=== PATIENT | male | born 1955 | race Caucasian/White ===

== ENCOUNTER 2020-07-08 02:53 | Emergency (ER) | payer BC, SELFPAY ==
[~2020-07-08] VITALS: Ht 180.3 cm; Wt 91.6 kg
[2020-07-08 03:00] VITALS: BP_SYST 144
[2020-07-08 03:48] LABS: C-REACTIVE PROTEIN QUANT 11.6 mg/dL (0-0.5); CALCIUM 7.6 mg/dL (8.4-11.0); CREATININE 1.09 mg/dL (0.55-1.30)
[2020-07-08 04:03] LABS: ALBUMIN 3.2 g/dL (3.4-4.8); TOTAL BILIRUBIN 0.4 mg/dL (0.0-1.0)
[2020-07-08 04:18] LABS: FIBRINOGEN 527 mg/dL (200-400)
[2020-07-08 04:25] LABS: HEMATOCRIT 40.3 % (36-54); HEMOGLOBIN 13.6 g/dL (14.0-18.0); RED BLOOD CELL COUNT(AUTO) 4.59 MIL/uL (4.2-6.2); WHITE BLOOD COUNT (AUTO) 5.1 K/uL (4.8-10.8)
[2020-07-08 04:26] LABS: BASOPHILS % (AUTO) 0.5 % (0.0-2.0); EOSINOPHILS % (AUTO) 0.3 % (0.0-4.0); LYMPHOCYTES # (AUTO) 0.5 K/uL (1.0-5.5); LYMPHOCYTES % (AUTO) 10.6 % (20.5-51.5); MEAN CORPUSCULAR HEMOGLOBIN 30 pg (27-31); MEAN CORPUSCULAR HGB CONC 34 % (32-36); MEAN CORPUSCULAR VOLUME 88 fL (79.0-98.0); MONOCYTES # (AUTO) 0.4 K/uL (0.0-1.0); NEUTROPHILS # (AUTO) 4.1 K/uL (1.8-7.7); NEUTROPHILS % (AUTO) 81.6 % (40.0-70.0); PLATELET COUNT (AUTO) 162 K/uL (130-430); RED CELL DISTRIBUTION WIDTH 13.5 % (9.0-15.0)
[2020-07-08] MEDS ORDERED: IPRATROPIUM/ALBUTEROL SULFATE 3 ML AMPUL.NEB (DUONEB) INH ONE (04:30)
[2020-07-08] MEDS ORDERED: IPRATROPIUM/ALBUTEROL SULFATE 3 ML AMPUL.NEB (DUONEB) ONE (04:34)
[2020-07-08] MEDS ORDERED: ALBMDI INH (05:04)
[2020-07-08] MEDS ORDERED: ZIT250 PO (05:05)
[2020-07-08 05:16] VITALS: BP_SYST 128
== END 2020-07-08 05:16 | disposition home or self-care (01) ==
LOC: SED 02:53
DX: U07.1 COVID-19 (principal); J18.9 Pneumonia, unspecified organism; J40 Bronchitis, not specified as acute or chronic
CPT/HCPCS: 36415; 71045; 80053; 85025; 85379; 85384-TC; 86140; 94640; 99284

== ENCOUNTER 2020-07-08 19:56 | Inpatient (IN) | payer BC, SELFPAY ==
[~2020-07-08] VITALS: Ht 180.3 cm; Wt 95.3 kg
[~2020-07-08 19:56] MED LIST: ALBMDI INH; ZIT250 PO
[2020-07-08 20:55] LABS: BASOPHILS % (AUTO) 0.6 % (0.0-2.0); HEMATOCRIT 38.9 % (36-54); HEMOGLOBIN 13.5 g/dL (14.0-18.0); LYMPHOCYTES # (AUTO) 0.5 K/uL (1.0-5.5); LYMPHOCYTES % (AUTO) 10.9 % (20.5-51.5); MEAN CORPUSCULAR HEMOGLOBIN 30 pg (27-31); MEAN CORPUSCULAR HGB CONC 35 % (32-36); MEAN CORPUSCULAR VOLUME 87 fL (79.0-98.0); MONOCYTES # (AUTO) 0.3 K/uL (0.0-1.0); MONOCYTES % (AUTO) 5.4 % (1.7-9.3); NEUTROPHILS # (AUTO) 4.1 K/uL (1.8-7.7); NEUTROPHILS % (AUTO) 83.1 % (40.0-70.0); PLATELET COUNT (AUTO) 176 K/uL (130-430); RED CELL DISTRIBUTION WIDTH 13.6 % (9.0-15.0); WHITE BLOOD COUNT (AUTO) 4.9 K/uL (4.8-10.8)
[2020-07-08] MEDS ORDERED: IBUPROFEN 800 MG TABLET PO ONE (21:00)
[2020-07-08 21:14] LABS: CALCIUM 7.4 mg/dL (8.4-11.0); CREATININE 1.18 mg/dL (0.55-1.30); POTASSIUM 4.3 mmol/L (3.5-5.1)
[2020-07-08 21:18] LABS: ALBUMIN 3.2 g/dL (3.4-4.8); TOTAL BILIRUBIN 0.4 mg/dL (0.0-1.0)
[2020-07-08 21:24] LABS: C-REACTIVE PROTEIN QUANT 12.9 mg/dL (0-0.5)
[2020-07-08] MEDS ORDERED: DEXAMETHASONE SOD PHOSPHATE 4 MG/ML VIAL IVP ONE (21:45)
[2020-07-08] MEDS ORDERED: KCL 20 mEq in D5/0.45NS 1000mL 1,000 ML IV ONE ×2 (22:01→23:00)
[2020-07-08] MEDS ORDERED: ACETAMINOPHEN 325 MG TABLET PO PRN (23:45)
[2020-07-08] MEDS ORDERED: LEVALBUTEROL Tartrate 15 GM HFA. 45 mCg/Actuation INH SCH (23:45)
[2020-07-08 23:55] VITALS: BP_SYST 122
[2020-07-09] VITALS (10 sets, daily range): BP systolic 112–138
[2020-07-09] MEDS ORDERED: AZITHROMYCIN 500 MG/VIAL (ZITHROMAX) IV ONE (00:56)
[2020-07-09] MEDS ORDERED: cefTRIAXone 1 GM IVPB PREMIX 50 ML IV ONE (00:56)
[2020-07-09] MEDS: cefTRIAXone 1 GM in D5W 50 ML IV SCH ×2 (01:04→23:08)
[2020-07-09] MEDS: ENOXAPARIN SODIUM 40 MG/0.4 ML SYRINGE SUBCUT SCH ×3 (01:05→23:06)
[2020-07-09] MEDS: AZITHROMYCIN 500 MG in NS 250 ML IV SCH ×2 (01:53→23:46)
[2020-07-09 07:17] LABS: BASOPHILS % (AUTO) 0.3 % (0.0-2.0); HEMATOCRIT 40.3 % (36-54); HEMOGLOBIN 13.6 g/dL (14.0-18.0); LYMPHOCYTES # (AUTO) 0.5 K/uL (1.0-5.5); LYMPHOCYTES % (AUTO) 13.6 % (20.5-51.5); MEAN CORPUSCULAR HEMOGLOBIN 29 pg (27-31); MEAN CORPUSCULAR HGB CONC 34 % (32-36); MEAN CORPUSCULAR VOLUME 86 fL (79.0-98.0); MONOCYTES # (AUTO) 0.3 K/uL (0.0-1.0); MONOCYTES % (AUTO) 7.1 % (1.7-9.3); NEUTROPHILS # (AUTO) 2.9 K/uL (1.8-7.7); PLATELET COUNT (AUTO) 184 K/uL (130-430); RED BLOOD CELL COUNT(AUTO) 4.68 MIL/uL (4.2-6.2); RED CELL DISTRIBUTION WIDTH 13.6 % (9.0-15.0); WHITE BLOOD COUNT (AUTO) 3.6 K/uL (4.8-10.8)
[2020-07-09 07:42] LABS: CALCIUM 7.7 mg/dL (8.4-11.0); CREATININE 1.15 mg/dL (0.55-1.30); POTASSIUM 4.8 mmol/L (3.5-5.1)
[2020-07-09] MEDS: CHOLECALCIFEROL (VITAMIN D3) 5,000 UNIT TABLET PO SCH (08:32)
[2020-07-09] MEDS ORDERED: KCL 20 mEq in D5/0.45NS 1000mL 1,000 ML IV SCH (16:15)
[2020-07-09] MEDS ORDERED: FUROSEMIDE 40 MG/4 ML VIAL IVP ONE (21:15)
[2020-07-09] MEDS ORDERED: methylPREDNISolone SOD SUCC/PF 62.5 MG/ML VIAL IVP ONE (21:15)
[2020-07-09] MEDS: ACETAMINOPHEN 325 MG TABLET PO PRN (21:26)
[2020-07-09] MEDS: DEXAMETHASONE SOD PHOSPHATE 10 MG/ML VIAL IVP SCH (21:30)
[2020-07-09] MEDS: ALBUTEROL MDI INHALATION 8 GM INH INH PRN (21:30)
[2020-07-09] MEDS: ASCORBIC ACID 500 MG TABLET PO SCH (23:05)
[2020-07-09 23:21] LABS: BILIRUBIN,URINE NEGATIVE (NEGATIVE); CLARITY/URINE CLEAR (CLEAR); COLOR,URINE YELLOW (YELLOW); GLUCOSE,URINE NEGATIVE (NEGATIVE); KETONES,URINE NEGATIVE (NEGATIVE); LEUKOCYTE ESTERASE ,URINE NEGATIVE (NEGATIVE); NITRITE, URINE NEGATIVE (NEGATIVE); PROTEIN URINE NEGATIVE (NEGATIVE); UROBILINOGEN,URINE 0.2 (0.2-1.0)
[2020-07-09 23:48] LABS: BLOOD, URINE TRACE (NEGATIVE)
[2020-07-09 23:49] LABS: RBC,URINE 0-3 /HPF (0-3); WBC,URINE 0-3 /HPF (0-3)
[2020-07-09 23:50] LABS: BACTERIA,URINE RARE /HPF (None Seen); MUCUS,URINE None Seen /LPF (None Seen)
[2020-07-10] VITALS: BP_SYST 115
[2020-07-10 05:25] VITALS: BP_SYST 110
[2020-07-10 06:24] LABS: BILIRUBIN,DIRECT 0.1 mg/dL (0.0-0.3); CALCIUM 8.1 mg/dL (8.4-11.0); CREATININE 1.28 mg/dL (0.55-1.30); POTASSIUM 4.5 mmol/L (3.5-5.1); TOTAL BILIRUBIN 0.4 mg/dL (0.0-1.0)
[2020-07-10 08:00] VITALS: BP_SYST 119
[2020-07-10] MEDS: CHOLECALCIFEROL (VITAMIN D3) 5,000 UNIT TABLET PO SCH (08:01)
[2020-07-10] MEDS: ASCORBIC ACID 500 MG TABLET PO SCH ×2 (08:01→20:05)
[2020-07-10] MEDS: ENOXAPARIN SODIUM 40 MG/0.4 ML SYRINGE SUBCUT SCH ×2 (08:02→20:05)
[2020-07-10 08:32] LABS: C-REACTIVE PROTEIN QUANT 8.9 mg/dL (0-0.5)
[2020-07-10 12:00] VITALS: BP_SYST 122
[2020-07-10 16:00] VITALS: BP_SYST 100
[2020-07-10 20:03] VITALS: BP_SYST 130
[2020-07-10] MEDS: DEXAMETHASONE SOD PHOSPHATE 10 MG/ML VIAL IVP SCH (20:05)
[2020-07-10] MEDS: cefTRIAXone 1 GM in D5W 50 ML IV SCH (23:02)
[2020-07-10] MEDS: AZITHROMYCIN 500 MG in NS 250 ML IV SCH (23:46)
[2020-07-11] VITALS: BP_SYST 112
[2020-07-11] MEDS: ALBUTEROL MDI INHALATION 8 GM INH INH PRN ×3 (02:14→23:26)
[2020-07-11 04:15] VITALS: BP_SYST 121
[2020-07-11 07:31] LABS: ALBUMIN 2.7 g/dL (3.4-4.8); CALCIUM 8.1 mg/dL (8.4-11.0); CREATININE 0.96 mg/dL (0.55-1.30); POTASSIUM 4.4 mmol/L (3.5-5.1); TOTAL BILIRUBIN 0.4 mg/dL (0.0-1.0)
[2020-07-11 07:56] LABS: HEMATOCRIT 41.4 % (36-54); HEMOGLOBIN 13.8 g/dL (14.0-18.0); LYMPHOCYTES # (AUTO) 0.4 K/uL (1.0-5.5); LYMPHOCYTES % (AUTO) 5.2 % (20.5-51.5); MEAN CORPUSCULAR HEMOGLOBIN 29 pg (27-31); MEAN CORPUSCULAR HGB CONC 33 % (32-36); MEAN CORPUSCULAR VOLUME 87 fL (79.0-98.0); MONOCYTES # (AUTO) 0.7 K/uL (0.0-1.0); MONOCYTES % (AUTO) 8.4 % (1.7-9.3); NEUTROPHILS # (AUTO) 7.2 K/uL (1.8-7.7); NEUTROPHILS % (AUTO) 86.4 % (40.0-70.0); PLATELET COUNT (AUTO) 264 K/uL (130-430); RED BLOOD CELL COUNT(AUTO) 4.76 MIL/uL (4.2-6.2); RED CELL DISTRIBUTION WIDTH 13.6 % (9.0-15.0); WHITE BLOOD COUNT (AUTO) 8.4 K/uL (4.8-10.8)
[2020-07-11 08:13] VITALS: BP_SYST 108
[2020-07-11] MEDS: DOCUSATE SODIUM 100 MG CAPSULE PO SCH ×2 (09:00→21:00)
[2020-07-11] MEDS: CHOLECALCIFEROL (VITAMIN D3) 5,000 UNIT TABLET PO SCH (09:18)
[2020-07-11] MEDS: ASCORBIC ACID 500 MG TABLET PO SCH ×2 (09:18→21:05)
[2020-07-11] MEDS: ENOXAPARIN SODIUM 40 MG/0.4 ML SYRINGE SUBCUT SCH ×2 (09:19→21:06)
[2020-07-11] MEDS ORDERED: IOHEXOL 350 mgI/mL, 150 ML INFUS..BTL IV ONE (09:36)
[2020-07-11 12:00] VITALS: BP_SYST 132
[2020-07-11 16:00] VITALS: BP_SYST 139
[2020-07-11] MEDS: OLUMIANT PO SCH (16:52)
[2020-07-11 19:47] VITALS: BP_SYST 137
[2020-07-11] MEDS: cefTRIAXone 1 GM in D5W 50 ML IV SCH (21:04)
[2020-07-11] MEDS: AZITHROMYCIN 500 MG in NS 250 ML IV SCH (21:04)
[2020-07-11] MEDS: DEXAMETHASONE SOD PHOSPHATE 10 MG/ML VIAL IVP SCH (21:05)
[2020-07-12] VITALS: BP_SYST 129
[2020-07-12 07:04] LABS: BASOPHILS % (AUTO) 0.1 % (0.0-2.0); HEMATOCRIT 41.1 % (36-54); HEMOGLOBIN 13.9 g/dL (14.0-18.0); LYMPHOCYTES # (AUTO) 0.4 K/uL (1.0-5.5); LYMPHOCYTES % (AUTO) 7.4 % (20.5-51.5); MEAN CORPUSCULAR HEMOGLOBIN 29 pg (27-31); MEAN CORPUSCULAR HGB CONC 34 % (32-36); MEAN CORPUSCULAR VOLUME 87 fL (79.0-98.0); MONOCYTES # (AUTO) 0.6 K/uL (0.0-1.0); MONOCYTES % (AUTO) 9.4 % (1.7-9.3); NEUTROPHILS % (AUTO) 83.1 % (40.0-70.0); PLATELET COUNT (AUTO) 300 K/uL (130-430); RED BLOOD CELL COUNT(AUTO) 4.75 MIL/uL (4.2-6.2); RED CELL DISTRIBUTION WIDTH 13.6 % (9.0-15.0)
[2020-07-12 07:33] LABS: ALBUMIN 2.7 g/dL (3.4-4.8); CALCIUM 8.2 mg/dL (8.4-11.0); POTASSIUM 5.3 mmol/L (3.5-5.1); TOTAL BILIRUBIN 0.5 mg/dL (0.0-1.0)
[2020-07-12 07:54] LABS: BILIRUBIN,DIRECT 0.1 mg/dL (0.0-0.3)
[2020-07-12] MEDS: CHOLECALCIFEROL (VITAMIN D3) 5,000 UNIT TABLET PO SCH (08:11)
[2020-07-12] MEDS: ASCORBIC ACID 500 MG TABLET PO SCH ×2 (08:11→20:34)
[2020-07-12 08:12] VITALS: BP_SYST 118
[2020-07-12] MEDS: OLUMIANT PO SCH (08:12)
[2020-07-12] MEDS: DOCUSATE SODIUM 100 MG CAPSULE PO SCH ×3 (08:12→20:35)
[2020-07-12 08:46] LABS: C-REACTIVE PROTEIN QUANT 4.2 mg/dL (0-0.5)
[2020-07-12] MEDS ORDERED: guaiFENesin 200 MG/CODEINE 20 MG/ 10 ML UDC PO PRN (09:15)
[2020-07-12] MEDS ORDERED: ENOXAPARIN SODIUM 40 MG/0.4 ML SYRINGE SUBCUT ONE (09:15)
[2020-07-12 09:42] VITALS: BP_SYST 118
[2020-07-12 12:17] VITALS: BP_SYST 120
[2020-07-12 16:46] VITALS: BP_SYST 126
[2020-07-12] MEDS: FLUTICASONE PROPIONATE 50 mCg/SPRAY 16 GM NS SCH (17:45)
[2020-07-12 19:30] VITALS: BP_SYST 131
[2020-07-12] MEDS: cefTRIAXone 1 GM in D5W 50 ML IV SCH (20:34)
[2020-07-12] MEDS: AZITHROMYCIN 500 MG in NS 250 ML IV SCH (20:34)
[2020-07-12] MEDS: DEXAMETHASONE SOD PHOSPHATE 10 MG/ML VIAL IVP SCH (20:35)
[2020-07-13] VITALS: BP_SYST 106
[2020-07-13 07:44] LABS: BASOPHILS % (AUTO) 0.1 % (0.0-2.0); HEMATOCRIT 40.5 % (36-54); HEMOGLOBIN 13.6 g/dL (14.0-18.0); LYMPHOCYTES # (AUTO) 0.4 K/uL (1.0-5.5); LYMPHOCYTES % (AUTO) 5.1 % (20.5-51.5); MEAN CORPUSCULAR HEMOGLOBIN 29 pg (27-31); MEAN CORPUSCULAR HGB CONC 34 % (32-36); MEAN CORPUSCULAR VOLUME 87 fL (79.0-98.0); MONOCYTES # (AUTO) 0.6 K/uL (0.0-1.0); MONOCYTES % (AUTO) 7.4 % (1.7-9.3); NEUTROPHILS % (AUTO) 87.4 % (40.0-70.0); PLATELET COUNT (AUTO) 364 K/uL (130-430); RED BLOOD CELL COUNT(AUTO) 4.64 MIL/uL (4.2-6.2); RED CELL DISTRIBUTION WIDTH 13.2 % (9.0-15.0)
[2020-07-13 07:47] VITALS: BP_SYST 116
[2020-07-13] MEDS: BARICITINIB -Non-Formulary 2 MG TABLET PO SCH (08:07)
[2020-07-13] MEDS: ENOXAPARIN SODIUM 40 MG/0.4 ML SYRINGE SUBCUT SCH (08:08)
[2020-07-13] MEDS: CHOLECALCIFEROL (VITAMIN D3) 5,000 UNIT TABLET PO SCH (08:08)
[2020-07-13] MEDS: ASCORBIC ACID 500 MG TABLET PO SCH ×2 (08:08→20:50)
[2020-07-13] MEDS: FLUTICASONE PROPIONATE 50 mCg/SPRAY 16 GM NS SCH (08:09)
[2020-07-13] MEDS: DOCUSATE SODIUM 100 MG CAPSULE PO SCH ×2 (08:23→20:44)
[2020-07-13 08:55] LABS: ALBUMIN 2.8 g/dL (3.4-4.8); BILIRUBIN,DIRECT 0.1 mg/dL (0.0-0.3); CALCIUM 8.5 mg/dL (8.4-11.0); CREATININE 0.86 mg/dL (0.55-1.30); TOTAL BILIRUBIN 0.6 mg/dL (0.0-1.0)
[2020-07-13 09:11] VITALS: BP_SYST 123
[2020-07-13 09:33] LABS: C-REACTIVE PROTEIN QUANT 2.7 mg/dL (0-0.5)
[2020-07-13] MEDS: ALBUTEROL MDI INHALATION 8 GM INH INH PRN (11:25)
[2020-07-13 12:13] VITALS: BP_SYST 124
[2020-07-13] MEDS: ACETAMINOPHEN 325 MG TABLET PO PRN (12:13)
[2020-07-13 16:33] VITALS: BP_SYST 131
[2020-07-13 20:04] VITALS: BP_SYST 134
[2020-07-13] MEDS: cefTRIAXone 1 GM in D5W 50 ML IV SCH (20:50)
[2020-07-13] MEDS: DEXAMETHASONE SOD PHOSPHATE 10 MG/ML VIAL IVP SCH (20:50)
[2020-07-14 00:37] VITALS: BP_SYST 116
[2020-07-14 06:38] LABS: HEMATOCRIT 42.1 % (36-54); HEMOGLOBIN 14.4 g/dL (14.0-18.0); LYMPHOCYTES # (AUTO) 0.6 K/uL (1.0-5.5); LYMPHOCYTES % (AUTO) 5.5 % (20.5-51.5); MEAN CORPUSCULAR HEMOGLOBIN 29 pg (27-31); MEAN CORPUSCULAR HGB CONC 34 % (32-36); MEAN CORPUSCULAR VOLUME 86 fL (79.0-98.0); MONOCYTES # (AUTO) 0.7 K/uL (0.0-1.0); MONOCYTES % (AUTO) 6.4 % (1.7-9.3); NEUTROPHILS # (AUTO) 9.6 K/uL (1.8-7.7); NEUTROPHILS % (AUTO) 88.1 % (40.0-70.0); PLATELET COUNT (AUTO) 410 K/uL (130-430); RED BLOOD CELL COUNT(AUTO) 4.89 MIL/uL (4.2-6.2); RED CELL DISTRIBUTION WIDTH 13.3 % (9.0-15.0)
[2020-07-14 07:08] LABS: ALBUMIN 2.9 g/dL (3.4-4.8); CALCIUM 8.7 mg/dL (8.4-11.0); POTASSIUM 5.1 mmol/L (3.5-5.1); TOTAL BILIRUBIN 0.5 mg/dL (0.0-1.0)
[2020-07-14 08:00] VITALS: BP_SYST 107
[2020-07-14] MEDS: CHOLECALCIFEROL (VITAMIN D3) 5,000 UNIT TABLET PO SCH (08:23)
[2020-07-14] MEDS: FLUTICASONE PROPIONATE 50 mCg/SPRAY 16 GM NS SCH (08:23)
[2020-07-14] MEDS: ASCORBIC ACID 500 MG TABLET PO SCH ×2 (08:23→21:12)
[2020-07-14] MEDS: DOCUSATE SODIUM 100 MG CAPSULE PO SCH ×3 (08:23→21:12)
[2020-07-14] MEDS: BARICITINIB -Non-Formulary 2 MG TABLET PO SCH (08:24)
[2020-07-14] MEDS: ENOXAPARIN SODIUM 40 MG/0.4 ML SYRINGE SUBCUT SCH (08:25)
[2020-07-14 12:00] VITALS: BP_SYST 117
[2020-07-14 15:48] VITALS: BP_SYST 114
[2020-07-14 20:00] VITALS: BP_SYST 136
[2020-07-14] MEDS: DEXAMETHASONE SOD PHOSPHATE 10 MG/ML VIAL IVP SCH (21:12)
[2020-07-14] MEDS: cefTRIAXone 1 GM in D5W 50 ML IV SCH (21:12)
[2020-07-14] MEDS: ACETAMINOPHEN 325 MG TABLET PO PRN (23:01)
[2020-07-14] MEDS: ONDANSETRON HCL 4 MG/2 ML VIAL IVP PRN (23:03)
[2020-07-14] MEDS ORDERED: ONDANSETRON HCL 4 MG/2 ML VIAL ONE (23:04)
[2020-07-15] VITALS (7 sets, daily range): BP systolic 104–127
[2020-07-15] MEDS: ACETAMINOPHEN 325 MG TABLET PO PRN (06:47)
[2020-07-15 07:21] LABS: BASOPHILS % (AUTO) 0.1 % (0.0-2.0); EOSINOPHILS % (AUTO) 0.1 % (0.0-4.0); HEMATOCRIT 42.9 % (36-54); HEMOGLOBIN 14.4 g/dL (14.0-18.0); LYMPHOCYTES # (AUTO) 0.8 K/uL (1.0-5.5); LYMPHOCYTES % (AUTO) 5.8 % (20.5-51.5); MEAN CORPUSCULAR HEMOGLOBIN 29 pg (27-31); MEAN CORPUSCULAR HGB CONC 34 % (32-36); MEAN CORPUSCULAR VOLUME 87 fL (79.0-98.0); MONOCYTES % (AUTO) 7.8 % (1.7-9.3); NEUTROPHILS # (AUTO) 11.2 K/uL (1.8-7.7); NEUTROPHILS % (AUTO) 86.2 % (40.0-70.0); PLATELET COUNT (AUTO) 481 K/uL (130-430); RED BLOOD CELL COUNT(AUTO) 4.93 MIL/uL (4.2-6.2); RED CELL DISTRIBUTION WIDTH 13.4 % (9.0-15.0)
[2020-07-15 07:29] LABS: BILIRUBIN,DIRECT 0.1 mg/dL (0.0-0.3); TOTAL BILIRUBIN 0.7 mg/dL (0.0-1.0)
[2020-07-15] MEDS: ASCORBIC ACID 500 MG TABLET PO SCH ×2 (08:30→20:37)
[2020-07-15] MEDS: CHOLECALCIFEROL (VITAMIN D3) 5,000 UNIT TABLET PO SCH (08:30)
[2020-07-15] MEDS: DOCUSATE SODIUM 100 MG CAPSULE PO SCH ×2 (08:30→20:37)
[2020-07-15] MEDS: BARICITINIB -Non-Formulary 2 MG TABLET PO SCH ×2 (08:31→08:57)
[2020-07-15] MEDS: ENOXAPARIN SODIUM 40 MG/0.4 ML SYRINGE SUBCUT SCH (08:31)
[2020-07-15] MEDS: FLUTICASONE PROPIONATE 50 mCg/SPRAY 16 GM NS SCH ×2 (08:31→08:50)
[2020-07-15 08:38] LABS: C-REACTIVE PROTEIN QUANT 3.1 mg/dL (0-0.5)
[2020-07-15] MEDS: DEXAMETHASONE SOD PHOSPHATE 10 MG/ML VIAL IVP SCH (20:37)
[2020-07-15] MEDS ORDERED: ONDANSETRON HCL 4 MG/2 ML VIAL ONE (21:48)
[2020-07-15] MEDS: ONDANSETRON HCL 4 MG/2 ML VIAL IVP PRN (21:48)
[2020-07-16 01:00] VITALS: BP_SYST 120
[2020-07-16 08:00] VITALS: BP_SYST 107
[2020-07-16] MEDS: DOCUSATE SODIUM 100 MG CAPSULE PO SCH ×2 (08:42→20:48)
[2020-07-16] MEDS: ASCORBIC ACID 500 MG TABLET PO SCH ×2 (08:42→20:48)
[2020-07-16] MEDS: CHOLECALCIFEROL (VITAMIN D3) 5,000 UNIT TABLET PO SCH (08:42)
[2020-07-16] MEDS: BARICITINIB -Non-Formulary 2 MG TABLET PO SCH (08:42)
[2020-07-16] MEDS: FLUTICASONE PROPIONATE 50 mCg/SPRAY 16 GM NS SCH (08:43)
[2020-07-16] MEDS: ENOXAPARIN SODIUM 40 MG/0.4 ML SYRINGE SUBCUT SCH (08:44)
[2020-07-16 09:09] LABS: BASOPHILS % (AUTO) 0.2 % (0.0-2.0); EOSINOPHILS % (AUTO) 0.2 % (0.0-4.0); HEMATOCRIT 43.4 % (36-54); HEMOGLOBIN 14.5 g/dL (14.0-18.0); LYMPHOCYTES # (AUTO) 0.7 K/uL (1.0-5.5); LYMPHOCYTES % (AUTO) 5.1 % (20.5-51.5); MEAN CORPUSCULAR HEMOGLOBIN 29 pg (27-31); MEAN CORPUSCULAR HGB CONC 33 % (32-36); MEAN CORPUSCULAR VOLUME 87 fL (79.0-98.0); MONOCYTES # (AUTO) 0.4 K/uL (0.0-1.0); MONOCYTES % (AUTO) 2.7 % (1.7-9.3); NEUTROPHILS # (AUTO) 12.4 K/uL (1.8-7.7); NEUTROPHILS % (AUTO) 91.8 % (40.0-70.0); PLATELET COUNT (AUTO) 559 K/uL (130-430); RED BLOOD CELL COUNT(AUTO) 4.97 MIL/uL (4.2-6.2); RED CELL DISTRIBUTION WIDTH 13.3 % (9.0-15.0); WHITE BLOOD COUNT (AUTO) 13.6 K/uL (4.8-10.8)
[2020-07-16 12:00] VITALS: BP_SYST 109
[2020-07-16 16:00] VITALS: BP_SYST 129
[2020-07-16 20:00] VITALS: BP_SYST 118
[2020-07-16] MEDS: DEXAMETHASONE SOD PHOSPHATE 10 MG/ML VIAL IVP SCH (20:48)
[2020-07-16] MEDS: DOXYCYCLINE HYCLATE 100 MG CAPSULE PO SCH (20:48)
[2020-07-16] MEDS: FAMOTIDINE 20 MG TABLET PO SCH (20:48)
[2020-07-17] VITALS: BP_SYST 124
[2020-07-17 08:00] LABS: BASOPHILS % (AUTO) 0.2 % (0.0-2.0); EOSINOPHILS % (AUTO) 0.2 % (0.0-4.0); HEMATOCRIT 44.3 % (36-54); HEMOGLOBIN 14.5 g/dL (14.0-18.0); LYMPHOCYTES # (AUTO) 0.8 K/uL (1.0-5.5); LYMPHOCYTES % (AUTO) 6.1 % (20.5-51.5); MEAN CORPUSCULAR HEMOGLOBIN 29 pg (27-31); MEAN CORPUSCULAR HGB CONC 33 % (32-36); MEAN CORPUSCULAR VOLUME 88 fL (79.0-98.0); MONOCYTES # (AUTO) 0.7 K/uL (0.0-1.0); MONOCYTES % (AUTO) 5.7 % (1.7-9.3); NEUTROPHILS # (AUTO) 11.4 K/uL (1.8-7.7); NEUTROPHILS % (AUTO) 87.8 % (40.0-70.0); PLATELET COUNT (AUTO) 684 K/uL (130-430); RED BLOOD CELL COUNT(AUTO) 5.01 MIL/uL (4.2-6.2); RED CELL DISTRIBUTION WIDTH 13.7 % (9.0-15.0)
[2020-07-17] MEDS: ASCORBIC ACID 500 MG TABLET PO SCH ×2 (08:12→21:14)
[2020-07-17] MEDS: DOCUSATE SODIUM 100 MG CAPSULE PO SCH ×2 (08:13→21:14)
[2020-07-17] MEDS: CHOLECALCIFEROL (VITAMIN D3) 5,000 UNIT TABLET PO SCH (08:13)
[2020-07-17] MEDS: DOXYCYCLINE HYCLATE 100 MG CAPSULE PO SCH ×2 (08:13→21:14)
[2020-07-17] MEDS: ENOXAPARIN SODIUM 40 MG/0.4 ML SYRINGE SUBCUT SCH (08:14)
[2020-07-17] MEDS: FLUTICASONE PROPIONATE 50 mCg/SPRAY 16 GM NS SCH (08:17)
[2020-07-17 08:30] VITALS: BP_SYST 107
[2020-07-17] MEDS: BARICITINIB -Non-Formulary 2 MG TABLET PO SCH (11:19)
[2020-07-17 11:26] VITALS: BP_SYST 125
[2020-07-17 12:06] VITALS: BP_SYST 110
[2020-07-17 18:02] VITALS: BP_SYST 112
[2020-07-17 20:00] VITALS: BP_SYST 110
[2020-07-17] MEDS: FAMOTIDINE 20 MG TABLET PO SCH (21:14)
[2020-07-17] MEDS: DEXAMETHASONE SOD PHOSPHATE 10 MG/ML VIAL IVP SCH (21:15)
[2020-07-18 00:10] VITALS: BP_SYST 99
[2020-07-18 05:23] VITALS: BP_SYST 103
[2020-07-18 08:08] VITALS: BP_SYST 115
[2020-07-18] MEDS: FLUTICASONE PROPIONATE 50 mCg/SPRAY 16 GM NS SCH (09:00)
[2020-07-18 09:06] LABS: BASOPHILS # (AUTO) 0.1 K/uL (0.0-0.2); BASOPHILS % (AUTO) 0.5 % (0.0-2.0); EOSINOPHILS % (AUTO) 0.1 % (0.0-4.0); HEMATOCRIT 44.3 % (36-54); HEMOGLOBIN 14.8 g/dL (14.0-18.0); LYMPHOCYTES # (AUTO) 0.7 K/uL (1.0-5.5); LYMPHOCYTES % (AUTO) 5.5 % (20.5-51.5); MEAN CORPUSCULAR HEMOGLOBIN 30 pg (27-31); MEAN CORPUSCULAR HGB CONC 34 % (32-36); MEAN CORPUSCULAR VOLUME 88 fL (79.0-98.0); MONOCYTES % (AUTO) 7.8 % (1.7-9.3); RED BLOOD CELL COUNT(AUTO) 5.03 MIL/uL (4.2-6.2); RED CELL DISTRIBUTION WIDTH 13.5 % (9.0-15.0); WHITE BLOOD COUNT (AUTO) 12.8 K/uL (4.8-10.8)
[2020-07-18 09:21] LABS: PLATELET COUNT (AUTO) 758 K/uL (130-430)
[2020-07-18] MEDS: CHOLECALCIFEROL (VITAMIN D3) 5,000 UNIT TABLET PO SCH (09:21)
[2020-07-18] MEDS: DOXYCYCLINE HYCLATE 100 MG CAPSULE PO SCH (09:21)
[2020-07-18] MEDS: DOCUSATE SODIUM 100 MG CAPSULE PO SCH (09:21)
[2020-07-18] MEDS: ASCORBIC ACID 500 MG TABLET PO SCH (09:22)
[2020-07-18] MEDS: BARICITINIB -Non-Formulary 2 MG TABLET PO SCH (09:22)
[2020-07-18] MEDS: ENOXAPARIN SODIUM 40 MG/0.4 ML SYRINGE SUBCUT SCH (09:26)
[2020-07-18 10:36] VITALS: BP_SYST 115
[2020-07-18 11:37] LABS: NEUTROPHILS % (AUTO) 86.1 % (40.0-70.0)
[2020-07-18 12:18] VITALS: BP_SYST 118
[2020-07-18] MEDS ORDERED: DOXY100C PO (13:50)
[2020-07-18] MEDS ORDERED: DEC4 PO (13:50)
[2020-07-18] MEDS ORDERED: APIX2.5T PO (13:52)
[2020-07-18] MEDS ORDERED: ZINC220T4 PO (13:53)
[2020-07-18] MEDS ORDERED: ASCO500T20 PO (13:53)
[2020-07-18] MEDS ORDERED: VITD400 PO (13:56)
[2020-07-18 14:15] VITALS: BP_SYST 118
== END 2020-07-18 15:00 | disposition home or self-care (01) | DRG 177 ==
LOC: SED 19:56 → STU 21:45
PROVIDERS: ADMIT Family Medicine; ATTEND Family Medicine
PROC: XW13325 Transfusion of Convalescent Plasma (Nonautologous) into Peripheral Vein, Percutaneous Approach, New Technology Group 5 (ICD-10-PCS; principal; 2020-07-09)
PROC: XW033E5 Introduction of Remdesivir Anti-infective into Peripheral Vein, Percutaneous Approach, New Technology Group 5 (ICD-10-PCS; 2020-07-10)
DX: U07.1 COVID-19 (principal); J12.82 Pneumonia due to coronavirus disease 2019; J96.21 Acute and chronic respiratory failure with hypoxia; E87.1 Hypo-osmolality and hyponatremia; E66.9 Obesity, unspecified; F41.9 Anxiety disorder, unspecified; R74.01 Elevation of levels of liver transaminase levels; K21.9 Gastro-esophageal reflux disease without esophagitis; Z79.899 Other long term (current) drug therapy; Z68.21 Body mass index [BMI] 21.0-21.9, adult
CPT/HCPCS: 36415; 36600; 71045; 71275; 76376; 80048; 80053; 80076; 81000-TC; 82248-TC; 82728; 82803-TC; 83605; 83735-TC; 83880; 84132-TC; 84484; 85025; 85379; 86140; 86710; 86880-TC; 86886; 86900; 86901; 86920; 87040-TC; 92610-GN; 93005; 94010; 94640; 94760; G0378; J0456; J0696; J1100; J1650; J1940; J2405; J2930; J7040; J7050; J7060; P9017; Q9967